=== PATIENT | male | born 1965 | race Caucasian/White ===

== ENCOUNTER 2017-06-14 08:02 | Emergency (ER) | payer MEDICAID ==
[~2017-06-14] VITALS: Ht 177.8 cm; Wt 108.9 kg
[2017-06-14 08:02] VITALS: BP_SYST 157
[2017-06-14 08:40] VITALS: BP_SYST 157
== END 2017-06-14 08:40 | disposition home or self-care (01) ==
LOC: SED 08:20
DX: L03.113 Cellulitis of right upper limb (principal)
CPT/HCPCS: 99283

== ENCOUNTER 2018-08-01 18:04 | Emergency (ER) | payer MEDICAID ==
[~2018-08-01] VITALS: Ht 177.8 cm; Wt 104.3 kg
[2018-08-01 18:10] VITALS: BP_SYST 155
[2018-08-01 19:14] VITALS: BP_SYST 148
== END 2018-08-01 19:14 | disposition home or self-care (01) ==
LOC: SED 18:04
DX: J01.90 Acute sinusitis, unspecified (principal); F17.210 Nicotine dependence, cigarettes, uncomplicated; R03.0 Elevated blood-pressure reading, without diagnosis of hypertension; Z71.6 Tobacco abuse counseling; Z90.49 Acquired absence of other specified parts of digestive tract
CPT/HCPCS: 71045; 99283

== ENCOUNTER 2020-08-20 07:58 | Emergency (ER) | payer MEDICAID, SELFPAY ==
[~2020-08-20] VITALS: Ht 177.8 cm; Wt 117.9 kg
[2020-08-20 08:07] VITALS: BP_SYST 153
[2020-08-20] MEDS ORDERED: MAG HYDROX/AL HYDROX/SIMETH 30 ML, DICYCLOMINE HCL 20 MG, LIDOCAINE VISCOUS 2% 15ML (PO... PO ONE ×3 (08:30)
[2020-08-20 08:52] LABS: BASOPHILS # (AUTO) 0.2 K/uL (0.0-0.2); BASOPHILS % (AUTO) 1.5 % (0.0-2.0); EOSINOPHILS % (AUTO) 0.3 % (0.0-4.0); HEMATOCRIT 53.2 % (36-54); HEMOGLOBIN 17.7 g/dL (14.0-18.0); LYMPHOCYTES # (AUTO) 0.9 K/uL (1.0-5.5); LYMPHOCYTES % (AUTO) 5.9 % (20.5-51.5); MEAN CORPUSCULAR HEMOGLOBIN 29 pg (27-31); MEAN CORPUSCULAR HGB CONC 33 % (32-36); MEAN CORPUSCULAR VOLUME 88 fL (79.0-98.0); MONOCYTES # (AUTO) 0.9 K/uL (0.0-1.0); MONOCYTES % (AUTO) 5.6 % (1.7-9.3); NEUTROPHILS # (AUTO) 13.8 K/uL (1.8-7.7); NEUTROPHILS % (AUTO) 86.7 % (40.0-70.0); PLATELET COUNT (AUTO) 218 K/uL (130-430); RED BLOOD CELL COUNT(AUTO) 6.07 MIL/uL (4.2-6.2); RED CELL DISTRIBUTION WIDTH 14.1 % (9.0-15.0)
[2020-08-20 09:00] LABS: CALCIUM 8.7 mg/dL (8.4-11.0); CREATININE 1.13 mg/dL (0.55-1.30)
[2020-08-20 09:02] LABS: INR 1.2 (0.80-1.20); PROTHROMBIN TIME 12.2 SECS (9.5-12.5)
[2020-08-20 09:06] LABS: ALBUMIN 3.6 g/dL (3.4-4.8); TOTAL BILIRUBIN 3.6 mg/dL (0.0-1.0)
[2020-08-20] MEDS ORDERED: AZITHROMYCIN 500 MG in NS 250 ML IV ONE (09:30)
[2020-08-20] MEDS ORDERED: AZITHROMYCIN 500 MG/VIAL (ZITHROMAX) IV ONE ×2 (09:42→10:04)
[2020-08-20] MEDS ORDERED: NACL 0.9% 1,000 ML IV ONE (09:45)
[2020-08-20 12:21] LABS: BILIRUBIN,URINE NEGATIVE (NEGATIVE); BLOOD, URINE NEGATIVE (NEGATIVE); CLARITY/URINE CLEAR (CLEAR); COLOR,URINE YELLOW (YELLOW); GLUCOSE,URINE NEGATIVE (NEGATIVE); KETONES,URINE TRACE (NEGATIVE); LEUKOCYTE ESTERASE ,URINE NEGATIVE (NEGATIVE); NITRITE, URINE NEGATIVE (NEGATIVE); PROTEIN URINE NEGATIVE (NEGATIVE)
[2020-08-20] MEDS ORDERED: cefTRIAXone 1 GM in D5W 50 ML IV ONE (12:45)
[2020-08-20] MEDS ORDERED: PRO40 PO (12:47)
[2020-08-20] MEDS ORDERED: cefTRIAXone 1 GM VIAL ONE (12:47)
[2020-08-20] MEDS ORDERED: ZIT250 PO (12:47)
[2020-08-20 13:56] VITALS: BP_SYST 126
== END 2020-08-20 13:56 | disposition home or self-care (01) ==
LOC: SED 07:58
DX: J18.9 Pneumonia, unspecified organism (principal); K29.70 Gastritis, unspecified, without bleeding; E86.0 Dehydration; F15.20 Other stimulant dependence, uncomplicated; R55 Syncope and collapse; Z79.899 Other long term (current) drug therapy; Z20.822 Contact with and (suspected) exposure to COVID-19
CPT/HCPCS: 36415; 71045; 71048; 74021; 80053; 81003; 82962; 83605; 83690; 83735; 83880; 84484; 85025; 85610; 87040; 87426; 93005; 96365; 96366; 96367; 99285; J0456; J0696; J2001

== ENCOUNTER 2021-06-25 22:04 | Emergency (ER) | payer MEDICAID, SELFPAY ==
[~2021-06-25] VITALS: Ht 177.8 cm; Wt 90.7 kg
[~2021-06-25 22:04] MED LIST: PRO40 PO; ZIT250 PO
[2021-06-25 22:28] VITALS: BP_SYST 137
[2021-06-25] MEDS ORDERED: ASPIRIN 81 MG TAB.CHEW PO ONE (23:00)
[2021-06-25 23:25] LABS: BASOPHILS # (AUTO) 0.1 K/uL (0.0-0.2); BASOPHILS % (AUTO) 1.1 % (0.0-2.0); EOSINOPHILS # (AUTO) 0.2 K/uL (0.0-0.4); EOSINOPHILS % (AUTO) 2.9 % (0.0-4.0); HEMATOCRIT 45.5 % (36-54); HEMOGLOBIN 15.1 g/dL (14.0-18.0); LYMPHOCYTES # (AUTO) 1.4 K/uL (1.0-5.5); MEAN CORPUSCULAR HEMOGLOBIN 28 pg (27-31); MEAN CORPUSCULAR HGB CONC 33 % (32-36); MEAN CORPUSCULAR VOLUME 86 fL (79.0-98.0); MONOCYTES # (AUTO) 0.6 K/uL (0.0-1.0); MONOCYTES % (AUTO) 8.6 % (1.7-9.3); NEUTROPHILS # (AUTO) 4.4 K/uL (1.8-7.7); NEUTROPHILS % (AUTO) 66.4 % (40.0-70.0); PLATELET COUNT (AUTO) 198 K/uL (130-430); RED BLOOD CELL COUNT(AUTO) 5.32 MIL/uL (4.2-6.2); WHITE BLOOD COUNT (AUTO) 6.6 K/uL (4.8-10.8)
[2021-06-25 23:40] LABS: CALCIUM 8.1 mg/dL (8.4-11.0); CREATININE 0.86 mg/dL (0.55-1.30); POTASSIUM 3.7 mmol/L (3.5-5.1)
[2021-06-25] MEDS ORDERED: FUROSEMIDE 40 MG/4 ML VIAL IVP ONE (23:45)
[2021-06-25 23:49] LABS: ALBUMIN 3.7 g/dL (3.4-4.8); TOTAL BILIRUBIN 1.2 mg/dL (0.0-1.0)
[2021-06-26] MEDS ORDERED: LOSA25TA3 PO (00:37)
[2021-06-26] MEDS ORDERED: FURO-149 PO (00:37)
[2021-06-26] MEDS ORDERED: ASPIRIN 325 MG TABLET PO ONE (03:00)
[2021-06-26 06:54] VITALS: BP_SYST 133
[2021-06-26 06:54] LABS: BILIRUBIN,URINE NEGATIVE (NEGATIVE); BLOOD, URINE NEGATIVE (NEGATIVE); CLARITY/URINE CLEAR (CLEAR); COLOR,URINE YELLOW (YELLOW); GLUCOSE,URINE NEGATIVE (NEGATIVE); KETONES,URINE NEGATIVE (NEGATIVE); LEUKOCYTE ESTERASE ,URINE NEGATIVE (NEGATIVE); NITRITE, URINE NEGATIVE (NEGATIVE); PH,URINE 6.5 (5.0-8.0); PROTEIN URINE NEGATIVE (NEGATIVE); UROBILINOGEN,URINE 0.2 (0.2-1.0)
== END 2021-06-26 06:52 | disposition short-term general hospital (02) ==
LOC: SED 22:04
DX: R06.02 Shortness of breath (principal); R60.0 Localized edema; Z79.899 Other long term (current) drug therapy; Z20.822 Contact with and (suspected) exposure to COVID-19
CPT/HCPCS: 36415; 71045; 80053; 81003; 83880; 84484; 85025; 87426; 93005; 93970; 96374; 99285; J1940

== ENCOUNTER → 2021-10-16 | Emergency (ER) | payer MEDICAID ==
[~2021-10-16] VITALS: Ht 175.3 cm; Wt 108.9 kg
[~2021-10-16] MED LIST changes: +FURO-149 PO; +LOSA25TA3 PO; +LOSA50TA3 PO; +POTA-197 PO; -PRO40 PO; -ZIT250 PO
[2021-10-16 16:08] VITALS: BP_SYST 131
== END | disposition home or self-care (01) ==
LOC: SED 15:33
DX: I11.0 Hypertensive heart disease with heart failure (principal); I50.9 Heart failure, unspecified; R06.02 Shortness of breath
CPT/HCPCS: 99283

== ENCOUNTER 2021-12-06 02:32 | Emergency (ER) | payer MEDICAID ==
[~2021-12-06] VITALS: Ht 175.3 cm; Wt 104.3 kg
[2021-12-06 02:40] VITALS: BP_SYST 122
--- NOTE | 2021-12-06 03:40 | NUR ---
Patient to ER bed 7 to gown for evaluation. Side rails up. Report given to Carla FARAH(reg).
--- NOTE | 2021-12-06 03:45 | NUR ---
ER at bedside examining patient.
[2021-12-06] MEDS ORDERED: MAGNESIUM SULFATE 50 ML IV ONE (04:30)
--- NOTE | 2021-12-06 04:30 | NUR ---
PT COMES IN WITH CC OF GENERALIZED ABODMINAL PAIN, PT DENIES ANY VOMITING BUT STATES TO HAVE BEEN HAVING DIARRHEA FOR THE PAST COUPLE OF DAYS. PT IN BED LOCKED IN LOW POSITION IN STABLE CONDITION, ON CHILD SUPPORT CASE OFFICER. VSS ,NAD. WILL CONTINUE TO MONITOR.
[2021-12-06] MEDS ORDERED: ACETAMINOPHEN 500 MG TABLET PO ONE (06:00)
[2021-12-06 07:17] LABS: BASOPHILS # (AUTO) 0.1 K/uL (0.0-0.2); BASOPHILS % (AUTO) 1.1 % (0.0-2.0); EOSINOPHILS # (AUTO) 0.1 K/uL (0.0-0.4); EOSINOPHILS % (AUTO) 0.8 % (0.0-4.0); LYMPHOCYTES # (AUTO) 1.7 K/uL (1.0-5.5); LYMPHOCYTES % (AUTO) 21.3 % (20.5-51.5); MEAN CORPUSCULAR HEMOGLOBIN 29 pg (27-31); MEAN CORPUSCULAR HGB CONC 34 % (32-36); MEAN CORPUSCULAR VOLUME 85 fL (79.0-98.0); MONOCYTES # (AUTO) 0.8 K/uL (0.0-1.0); MONOCYTES % (AUTO) 10.9 % (1.7-9.3); NEUTROPHILS # (AUTO) 5.1 K/uL (1.8-7.7); NEUTROPHILS % (AUTO) 65.9 % (40.0-70.0); PLATELET COUNT (AUTO) 189 K/uL (130-430); RED CELL DISTRIBUTION WIDTH 14.8 % (9.0-15.0); WHITE BLOOD COUNT (AUTO) 7.8 K/uL (4.8-10.8)
--- NOTE | 2021-12-06 07:20 | NUR ---
RECEIVED PT FROM SOFI MCCORMACK. ASSUMED CARE. PT IS SLEEPING PEACEFULLY. RESP E/U. ON R/A. TELE MONITOR SHOWING NSR, VS WNL. PT HAS LH [address] PT ADMITTED FOR N/V, NO EPISODES ON PRIOR SHIFT, AWAITING MORNING LABS. SEIZURE PRECAUTIONS IN PLACE. SIDE RAILS UP X2, BED IN LOW POSITION. CALL LIGHT WITHIN REACH.
[2021-12-06 07:34] LABS: ANION GAP 7 (5-15); CALCIUM 8.1 mg/dL (8.4-11.0); CHLORIDE 104 mmol/L (98-107); CREATININE 1.01 mg/dL (0.55-1.30); GLUCOSE 107 mg/dL (70-99); POTASSIUM 3.4 mmol/L (3.5-5.1); SODIUM SERUM 135 mmol/L (136-145); UREA NITROGEN, BLOOD 13 mg/dL (8-21)
[2021-12-06 07:48] LABS: ALANINE AMINOTRANSFERASE 34 U/L (12-78); ALBUMIN 2.9 g/dL (3.4-4.8); ASPARTATE AMINOTRANSFERASE 28 U/L (10-37); LIPASE 131 U/L (73-393); TOTAL BILIRUBIN 1.3 mg/dL (0.0-1.0)
[2021-12-06 07:55] LABS: ALCOHOL, BLOOD < 3 mg/dL (<10); GFR AFRICAN AMERICAN 98 mL/min (>90)
--- NOTE | 2021-12-06 08:29 | NUR ---
CT SCAN COMPLETED . PT PULLED OUT IV CATH, ATTEMPTING NEW CATH INSERTION AT THIS TIME. PT ASSISTED TO BSC AND URINE SAMPLE OBTAINED AND TAKEN TO LAB.
[2021-12-06 09:44] LABS: BILIRUBIN,URINE NEGATIVE (NEGATIVE); BLOOD, URINE NEGATIVE (NEGATIVE); GLUCOSE,URINE NEGATIVE (NEGATIVE); KETONES,URINE NEGATIVE (NEGATIVE); LEUKOCYTE ESTERASE ,URINE NEGATIVE (NEGATIVE); NITRITE, URINE NEGATIVE (NEGATIVE); PH,URINE 5.5 (5.0-8.0); PROTEIN URINE 1+ (NEGATIVE); UROBILINOGEN,URINE 0.2 (0.2-1.0)
[2021-12-06 09:45] LABS: CLARITY/URINE SLIGHTLY HAZY (CLEAR); COLOR,URINE YELLOW (YELLOW)
[2021-12-06 10:39] LABS: BARBITURATE, URINE NEGATIVE (NEG <=200); BENZODIAZEPINE, URINE NEGATIVE (NEG <=150); CANNABINOID, URINE NEGATIVE (NEG <=50); COCAINE, URINE NEGATIVE (NEG <=150); METHAMPHETAMINES SCREEN,URINE NEGATIVE (NEG <=500); OPIATE, URINE NEGATIVE (NEG <=100); PHENCYCLIDINE SCREEN,URINE NEGATIVE (NEG <=25); UR TRICYCLIC ANTIDEPRESSANTS NEGATIVE (NEG <=300); URINE AMPHETAMINE NEGATIVE (NEG <=500); URINE METHADONE NEGATIVE (NEG <=200); URINE OXYCODONE SCREEN NEGATIVE (NEG <=100); URINE PROPOXYPHENE SCREEN NEGATIVE (NEG <=300)
[2021-12-06] MEDS ORDERED: metroNIDAZOLE 500 mg/NS 100 ML IV ONE (10:45)
--- NOTE | 2021-12-06 10:46 | NUR ---
DR. PEREA AT BEDSIDE TO REVIEW POC FOR PT. PT WILL HAVE IV FLAGYL AND DISCHARGE HOME. PT AGREES WITH POC.
[2021-12-06] MEDS ORDERED: METR-154 PO (13:05)
[2021-12-06 13:21] VITALS: BP_SYST 134
--- NOTE | 2021-12-06 13:23 | NUR ---
Patient given written and verbal discharge instructions and verbalizes understanding. ER MD discussed with patient the results and treatment provided. Patient in stable condition. ID arm band removed. IV catheter removed intact and dressing applied, no active bleeding. Rx of antibiotic given. Patient educated on pain management and to follow up with PMD. Pain Scale0/10. Opportunity for questions provided and answered. Medication side effect fact sheet provided.
== END 2021-12-06 13:23 | disposition home or self-care (01) ==
LOC: SED 02:32
DX: S81.812A Laceration without foreign body, left lower leg, initial encounter (principal); R10.13 Epigastric pain; R11.2 Nausea with vomiting, unspecified; Z79.899 Other long term (current) drug therapy; W25.XXXA Contact with sharp glass, initial encounter; Y93.89 Activity, other specified; Y92.89 Other specified places as the place of occurrence of the external cause; Y99.8 Other external cause status
CPT/HCPCS: 99285; 74176; 80307; 80053; 83690; 85025; 87040; 84484; 36415; 76376; 81003; 12002; 93005; G0482; J3475; J3490

== ENCOUNTER 2022-02-19 17:09 | Inpatient (IN) | payer MEDICAID ==
[~2022-02-19] VITALS: Ht 177.8 cm; Wt 121.1 kg
[~2022-02-19 17:09] MED LIST changes: +METR-154 PO
[2022-02-19 17:24] VITALS: BP_SYST 120
[2022-02-19 17:54] LABS: BASOPHILS % (AUTO) 0.3 % (0.0-2.0); EOSINOPHILS % (AUTO) 0.1 % (0.0-4.0); HEMATOCRIT 48.8 % (36-54); HEMOGLOBIN 16.3 g/dL (14.0-18.0); LYMPHOCYTES # (AUTO) 0.4 K/uL (1.0-5.5); LYMPHOCYTES % (AUTO) 3.4 % (20.5-51.5); MEAN CORPUSCULAR HEMOGLOBIN 29 pg (27-31); MEAN CORPUSCULAR HGB CONC 33 % (32-36); MEAN CORPUSCULAR VOLUME 87 fL (79.0-98.0); MONOCYTES # (AUTO) 0.4 K/uL (0.0-1.0); MONOCYTES % (AUTO) 3.1 % (1.7-9.3); NEUTROPHILS # (AUTO) 11.3 K/uL (1.8-7.7); NEUTROPHILS % (AUTO) 93.1 % (40.0-70.0); PLATELET COUNT (AUTO) 150 K/uL (130-430); RED BLOOD CELL COUNT(AUTO) 5.62 MIL/uL (4.2-6.2); RED CELL DISTRIBUTION WIDTH 14.8 % (9.0-15.0); WHITE BLOOD COUNT (AUTO) 12.1 K/uL (4.8-10.8)
[2022-02-19 18:06] LABS: ANION GAP 10 (5-15); CALCIUM 8.4 mg/dL (8.4-11.0); CHLORIDE 93 mmol/L (98-107); CREATININE 1.22 mg/dL (0.55-1.30); GLUCOSE 104 mg/dL (70-99); POTASSIUM 3.1 mmol/L (3.5-5.1); UREA NITROGEN, BLOOD 16 mg/dL (8-21)
[2022-02-19 18:07] LABS: GFR AFRICAN AMERICAN 79 mL/min (>90)
[2022-02-19 18:11] LABS: ALANINE AMINOTRANSFERASE 24 U/L (12-78); ALBUMIN 3.1 g/dL (3.4-4.8); ASPARTATE AMINOTRANSFERASE 23 U/L (10-37)
[2022-02-19 18:12] LABS: C-REACTIVE PROTEIN QUANT < 0.2 mg/dL (0-0.5)
[2022-02-19] MEDS ORDERED: CLINDAMYCIN 600 mg/50mL D5W 50 ML IV ONE ×2 (18:45→23:46)
[2022-02-19] MEDS ORDERED: ONDANSETRON 4 MG ODT TAB PO ONE (19:15)
[2022-02-20] MEDS ORDERED: ONDANSETRON HCL 4 MG/2 ML VIAL IVP PRN
[2022-02-20] MEDS ORDERED: HYDROcodone/ACETAMIN 5-325 MG TAB (NORCO/ VICODIN) PO PRN
[2022-02-20] MEDS ORDERED: ACETAMINOPHEN 325 MG TABLET PO PRN
[2022-02-20] MEDS ORDERED: TEMAZEPAM 7.5 MG CAPSULE PO PRN
[2022-02-20] MEDS ORDERED: NALOXONE HCL 0.4 MG/ML AMP (NARCAN) IVP PRN ×2
[2022-02-20] MEDS: CLINDAMYCIN 600 MG in D5W 50 ML IV SCH ×3 (05:44→22:22)
[2022-02-20] MEDS ORDERED: CLINDAMYCIN 600 MG in D5W 50 ML IV SCH (06:00)
[2022-02-20 08:00] VITALS: BP_SYST 122
[2022-02-20] MEDS ORDERED: FUROSEMIDE 40 MG TABLET PO SCH (09:00)
[2022-02-20] MEDS ORDERED: POTASSIUM CHLORIDE 20 MEQ/PKT PACKET PO SCH (09:00)
[2022-02-20] MEDS ORDERED: LOSARTAN POTASSIUM 50 MG TABLET (COZAAR) PO SCH (09:00)
[2022-02-20 11:41] VITALS: BP_SYST 100
[2022-02-20] MEDS ORDERED: FURO-150 PO (12:02)
[2022-02-20] MEDS ORDERED: POTA-197 PO (12:05)
[2022-02-20] MEDS ORDERED: ASPI-1393 PO (12:05)
[2022-02-20] MEDS ORDERED: ASPIRIN 81 MG TABLET(ECOTRIN) PO ONE (12:15)
[2022-02-20] MEDS: HYDROcodone/ACETAMIN 10-325 MG TAB PO PRN (13:36)
[2022-02-20] MEDS: ceFAZolin SODIUM 2 GM in NS 100 ML IV SCH ×2 (15:08→22:22)
[2022-02-20 15:40] VITALS: BP_SYST 90
[2022-02-20] MEDS ORDERED: FUROSEMIDE 40 MG/4 ML VIAL IVP SCH (21:00)
[2022-02-21 00:45] VITALS: BP_SYST 94
[2022-02-21] MEDS: CLINDAMYCIN 600 MG in D5W 50 ML IV SCH ×3 (05:03→21:45)
[2022-02-21] MEDS: ceFAZolin SODIUM 2 GM in NS 100 ML IV SCH ×3 (06:04→22:01)
[2022-02-21 07:15] LABS: BILIRUBIN,URINE 3+ (NEGATIVE); BLOOD, URINE NEGATIVE (NEGATIVE); CLARITY/URINE CLEAR (CLEAR); GLUCOSE,URINE TRACE (NEGATIVE); KETONES,URINE TRACE (NEGATIVE); LEUKOCYTE ESTERASE ,URINE NEGATIVE (NEGATIVE); NITRITE, URINE POSITIVE (NEGATIVE); PH,URINE 5.5 (5.0-8.0); PROTEIN URINE TRACE (NEGATIVE)
[2022-02-21 07:32] LABS: COLOR,URINE ORANGE (YELLOW)
[2022-02-21 07:55] LABS: BASOPHILS # (AUTO) 0.1 K/uL (0.0-0.2); BASOPHILS % (AUTO) 0.5 % (0.0-2.0); EOSINOPHILS # (AUTO) 0.1 K/uL (0.0-0.4); EOSINOPHILS % (AUTO) 0.6 % (0.0-4.0); HEMATOCRIT 38.1 % (36-54); LYMPHOCYTES # (AUTO) 0.9 K/uL (1.0-5.5); LYMPHOCYTES % (AUTO) 7.2 % (20.5-51.5); MEAN CORPUSCULAR HEMOGLOBIN 29 pg (27-31); MEAN CORPUSCULAR HGB CONC 34 % (32-36); MEAN CORPUSCULAR VOLUME 86 fL (79.0-98.0); MONOCYTES # (AUTO) 1.2 K/uL (0.0-1.0); MONOCYTES % (AUTO) 9.2 % (1.7-9.3); NEUTROPHILS # (AUTO) 10.6 K/uL (1.8-7.7); NEUTROPHILS % (AUTO) 82.5 % (40.0-70.0); PLATELET COUNT (AUTO) 130 K/uL (130-430); RED BLOOD CELL COUNT(AUTO) 4.44 MIL/uL (4.2-6.2); RED CELL DISTRIBUTION WIDTH 14.5 % (9.0-15.0); WHITE BLOOD COUNT (AUTO) 12.9 K/uL (4.8-10.8)
[2022-02-21 07:57] LABS: BARBITURATE, URINE NEGATIVE (NEG <=200); BENZODIAZEPINE, URINE NEGATIVE (NEG <=150); METHAMPHETAMINES SCREEN,URINE POSITIVE (NEG <=500); URINE AMPHETAMINE POSITIVE (NEG <=500); URINE METHADONE NEGATIVE (NEG <=200)
[2022-02-21 07:58] LABS: CANNABINOID, URINE NEGATIVE (NEG <=50); COCAINE, URINE NEGATIVE (NEG <=150); OPIATE, URINE POSITIVE (NEG <=100); PHENCYCLIDINE SCREEN,URINE NEGATIVE (NEG <=25); UR TRICYCLIC ANTIDEPRESSANTS NEGATIVE (NEG <=300); URINE OXYCODONE SCREEN NEGATIVE (NEG <=100); URINE PROPOXYPHENE SCREEN NEGATIVE (NEG <=300)
[2022-02-21 08:37] LABS: ALBUMIN 1.8 g/dL (3.4-4.8); CALCIUM 8.4 mg/dL (8.4-11.0); CREATININE 1.38 mg/dL (0.55-1.30); POTASSIUM 3.1 mmol/L (3.5-5.1); TOTAL BILIRUBIN 2.9 mg/dL (0.0-1.0)
[2022-02-21] MEDS: SPIRONOLACTONE 25 MG TABLET (ALDACTONE) PO SCH ×2 (09:00→20:42)
[2022-02-21] MEDS ORDERED: metOLazone 5 MG TABLET PO SCH (09:00)
[2022-02-21] MEDS: ASPIRIN 81 MG TABLET(ECOTRIN) PO SCH (09:00)
[2022-02-21] MEDS: FUROSEMIDE 40 MG/4 ML VIAL IVP SCH (09:00)
[2022-02-21 09:02] LABS: BACTERIA,URINE FEW /HPF (None Seen); MUCUS,URINE 1+ /LPF (None Seen); RBC,URINE 0-3 /HPF (0-3)
[2022-02-21] MEDS: POTASSIUM CHLORIDE 10 MEQ TAB.PRT.SR PO SCH (10:40)
[2022-02-21] MEDS ORDERED: NS 250 ML IV ONE (11:00)
[2022-02-21 11:26] VITALS: BP_SYST 95
[2022-02-21 15:25] VITALS: BP_SYST 114
[2022-02-21] MEDS ORDERED: ALBUMIN HUMAN 25% 50 ML IV ONE (17:15)
[2022-02-21 19:20] VITALS: BP_SYST 123
[2022-02-21 20:26] LABS: URINE SODIUM, RANDOM 4 mmol/L (40-220)
[2022-02-21] MEDS: HYDROcodone/ACETAMIN 10-325 MG TAB PO PRN (20:42)
[2022-02-22] MEDS: HYDROcodone/ACETAMIN 10-325 MG TAB PO PRN ×2 (03:11→22:20)
[2022-02-22 04:20] VITALS: BP_SYST 83
[2022-02-22] MEDS: CLINDAMYCIN 600 MG in D5W 50 ML IV SCH ×3 (05:55→22:21)
[2022-02-22] MEDS: ceFAZolin SODIUM 2 GM in NS 100 ML IV SCH ×3 (06:03→22:21)
[2022-02-22 06:44] LABS: BASOPHILS # (AUTO) 0.1 K/uL (0.0-0.2); BASOPHILS % (AUTO) 0.7 % (0.0-2.0); EOSINOPHILS # (AUTO) 0.1 K/uL (0.0-0.4); EOSINOPHILS % (AUTO) 0.8 % (0.0-4.0); HEMATOCRIT 38.2 % (36-54); HEMOGLOBIN 13.3 g/dL (14.0-18.0); LYMPHOCYTES # (AUTO) 0.8 K/uL (1.0-5.5); LYMPHOCYTES % (AUTO) 7.5 % (20.5-51.5); MEAN CORPUSCULAR HEMOGLOBIN 30 pg (27-31); MEAN CORPUSCULAR HGB CONC 35 % (32-36); MEAN CORPUSCULAR VOLUME 85 fL (79.0-98.0); MONOCYTES % (AUTO) 8.8 % (1.7-9.3); NEUTROPHILS # (AUTO) 9.3 K/uL (1.8-7.7); NEUTROPHILS % (AUTO) 82.2 % (40.0-70.0); PLATELET COUNT (AUTO) 164 K/uL (130-430); RED BLOOD CELL COUNT(AUTO) 4.48 MIL/uL (4.2-6.2); RED CELL DISTRIBUTION WIDTH 14.9 % (9.0-15.0); WHITE BLOOD COUNT (AUTO) 11.3 K/uL (4.8-10.8)
[2022-02-22 07:44] LABS: CALCIUM 7.7 mg/dL (8.4-11.0); CREATININE 1.15 mg/dL (0.55-1.30); POTASSIUM 3.1 mmol/L (3.5-5.1)
[2022-02-22] MEDS: ASPIRIN 81 MG TABLET(ECOTRIN) PO SCH (08:58)
[2022-02-22] MEDS: SPIRONOLACTONE 25 MG TABLET (ALDACTONE) PO SCH ×2 (08:58→22:21)
[2022-02-22] MEDS: FUROSEMIDE 40 MG/4 ML VIAL IVP SCH (08:58)
[2022-02-22] MEDS: POTASSIUM CHLORIDE 10 MEQ TAB.PRT.SR PO SCH (09:00)
[2022-02-22] MEDS ORDERED: POTASSIUM CHLORIDE 20 MEQ TAB.PRT.SR PO ONE (10:30)
[2022-02-22 11:22] VITALS: BP_SYST 115
[2022-02-22 15:25] VITALS: BP_SYST 110
[2022-02-22 19:15] VITALS: BP_SYST 121
[2022-02-22] MEDS: CALCIUM 500 MG/TAB PO SCH (22:21)
[2022-02-23] VITALS: BP_SYST 109
[2022-02-23] MEDS: ceFAZolin SODIUM 2 GM in NS 100 ML IV SCH ×3 (06:23→22:43)
[2022-02-23] MEDS: CLINDAMYCIN 600 MG in D5W 50 ML IV SCH ×3 (06:23→22:39)
[2022-02-23 07:05] LABS: BASOPHILS % (AUTO) 0.4 % (0.0-2.0); EOSINOPHILS # (AUTO) 0.1 K/uL (0.0-0.4); EOSINOPHILS % (AUTO) 0.9 % (0.0-4.0); HEMATOCRIT 37.5 % (36-54); LYMPHOCYTES # (AUTO) 1.2 K/uL (1.0-5.5); LYMPHOCYTES % (AUTO) 11.5 % (20.5-51.5); MEAN CORPUSCULAR HEMOGLOBIN 30 pg (27-31); MEAN CORPUSCULAR HGB CONC 35 % (32-36); MEAN CORPUSCULAR VOLUME 85 fL (79.0-98.0); MONOCYTES # (AUTO) 0.8 K/uL (0.0-1.0); MONOCYTES % (AUTO) 7.3 % (1.7-9.3); NEUTROPHILS # (AUTO) 8.7 K/uL (1.8-7.7); NEUTROPHILS % (AUTO) 79.9 % (40.0-70.0); PLATELET COUNT (AUTO) 222 K/uL (130-430); RED BLOOD CELL COUNT(AUTO) 4.39 MIL/uL (4.2-6.2); RED CELL DISTRIBUTION WIDTH 14.8 % (9.0-15.0); WHITE BLOOD COUNT (AUTO) 10.8 K/uL (4.8-10.8)
[2022-02-23 07:17] LABS: C-REACTIVE PROTEIN QUANT 11.6 mg/dL (0-0.5); CALCIUM 7.9 mg/dL (8.4-11.0); POTASSIUM 3.2 mmol/L (3.5-5.1)
[2022-02-23 08:00] VITALS: BP_SYST 128
[2022-02-23 08:23] LABS: ERYTHROCYTE SEDIMENTATION RATE 50 MM/HR (0-15)
[2022-02-23] MEDS: FUROSEMIDE 40 MG/4 ML VIAL IVP SCH (09:27)
[2022-02-23] MEDS: POTASSIUM CHLORIDE 10 MEQ TAB.PRT.SR PO SCH (09:29)
[2022-02-23] MEDS: ASPIRIN 81 MG TABLET(ECOTRIN) PO SCH (09:29)
[2022-02-23] MEDS: SPIRONOLACTONE 25 MG TABLET (ALDACTONE) PO SCH ×2 (09:30→22:51)
[2022-02-23] MEDS: CALCIUM 500 MG/TAB PO SCH ×2 (09:30→22:51)
[2022-02-23 11:23] VITALS: BP_SYST 109
[2022-02-23 15:45] VITALS: BP_SYST 130
[2022-02-23] MEDS: HYDROcodone/ACETAMIN 10-325 MG TAB PO PRN (18:17)
[2022-02-23 20:00] VITALS: BP_SYST 118
[2022-02-24 00:35] VITALS: BP_SYST 118
[2022-02-24] MEDS: CLINDAMYCIN 600 MG in D5W 50 ML IV SCH ×3 (06:40→21:30)
[2022-02-24 06:58] LABS: BASOPHILS # (AUTO) 0.1 K/uL (0.0-0.2); BASOPHILS % (AUTO) 0.7 % (0.0-2.0); EOSINOPHILS # (AUTO) 0.1 K/uL (0.0-0.4); EOSINOPHILS % (AUTO) 0.8 % (0.0-4.0); HEMATOCRIT 38.5 % (36-54); HEMOGLOBIN 13.2 g/dL (14.0-18.0); LYMPHOCYTES # (AUTO) 1.5 K/uL (1.0-5.5); LYMPHOCYTES % (AUTO) 13.1 % (20.5-51.5); MEAN CORPUSCULAR HEMOGLOBIN 29 pg (27-31); MEAN CORPUSCULAR HGB CONC 34 % (32-36); MEAN CORPUSCULAR VOLUME 86 fL (79.0-98.0); MONOCYTES # (AUTO) 0.9 K/uL (0.0-1.0); MONOCYTES % (AUTO) 7.9 % (1.7-9.3); NEUTROPHILS # (AUTO) 8.9 K/uL (1.8-7.7); NEUTROPHILS % (AUTO) 77.5 % (40.0-70.0); PLATELET COUNT (AUTO) 268 K/uL (130-430); RED BLOOD CELL COUNT(AUTO) 4.48 MIL/uL (4.2-6.2); RED CELL DISTRIBUTION WIDTH 15.3 % (9.0-15.0); WHITE BLOOD COUNT (AUTO) 11.5 K/uL (4.8-10.8)
[2022-02-24 07:04] LABS: ALBUMIN 1.9 g/dL (3.4-4.8); C-REACTIVE PROTEIN QUANT 9.9 mg/dL (0-0.5); CREATININE 1.17 mg/dL (0.55-1.30); POTASSIUM 3.3 mmol/L (3.5-5.1); TOTAL BILIRUBIN 1.9 mg/dL (0.0-1.0)
[2022-02-24 08:00] VITALS: BP_SYST 138
[2022-02-24] MEDS: CALCIUM 500 MG/TAB PO SCH ×2 (08:52→21:29)
[2022-02-24] MEDS: HYDROcodone/ACETAMIN 10-325 MG TAB PO PRN ×2 (08:52→21:29)
[2022-02-24] MEDS: SPIRONOLACTONE 25 MG TABLET (ALDACTONE) PO SCH ×2 (08:53→21:29)
[2022-02-24] MEDS: ASPIRIN 81 MG TABLET(ECOTRIN) PO SCH (08:53)
[2022-02-24] MEDS: POTASSIUM CHLORIDE 10 MEQ TAB.PRT.SR PO SCH (09:29)
[2022-02-24] MEDS: FUROSEMIDE 40 MG/4 ML VIAL IVP SCH (09:29)
[2022-02-24] MEDS: ceFAZolin SODIUM 2 GM in NS 100 ML IV SCH ×2 (09:30→17:21)
[2022-02-24 11:43] VITALS: BP_SYST 112
[2022-02-24 12:09] LABS: ERYTHROCYTE SEDIMENTATION RATE 38 MM/HR (0-15)
[2022-02-24 16:19] VITALS: BP_SYST 139
[2022-02-24 20:00] VITALS: BP_SYST 133
[2022-02-25] VITALS: BP_SYST 119
[2022-02-25] MEDS: CLINDAMYCIN 600 MG in D5W 50 ML IV SCH (05:25)
[2022-02-25] MEDS: HYDROcodone/ACETAMIN 10-325 MG TAB PO PRN ×2 (05:31→23:33)
[2022-02-25] MEDS: ceFAZolin SODIUM 2 GM in NS 100 ML IV SCH ×3 (06:08)
[2022-02-25 08:00] VITALS: BP_SYST 115
[2022-02-25] MEDS: POTASSIUM CHLORIDE 10 MEQ TAB.PRT.SR PO SCH (09:24)
[2022-02-25] MEDS: ASPIRIN 81 MG TABLET(ECOTRIN) PO SCH (09:25)
[2022-02-25] MEDS: CALCIUM 500 MG/TAB PO SCH ×2 (09:25→21:03)
[2022-02-25] MEDS: SPIRONOLACTONE 25 MG TABLET (ALDACTONE) PO SCH ×2 (09:25→21:00)
[2022-02-25] MEDS: FUROSEMIDE 40 MG/4 ML VIAL IVP SCH (09:26)
[2022-02-25 11:25] VITALS: BP_SYST 126
[2022-02-25 12:00] VITALS: BP_SYST 128
[2022-02-25 16:55] VITALS: BP_SYST 128
[2022-02-25 17:13] LABS: CALCIUM 8.8 mg/dL (8.4-11.0); CREATININE 1.15 mg/dL (0.55-1.30); POTASSIUM 4.2 mmol/L (3.5-5.1)
[2022-02-25 17:19] LABS: ALBUMIN 2.2 g/dL (3.4-4.8); TOTAL BILIRUBIN 2.5 mg/dL (0.0-1.0)
[2022-02-25 17:20] LABS: WHITE BLOOD COUNT (AUTO) 13.3 K/uL (4.8-10.8)
[2022-02-25 17:26] LABS: HEMATOCRIT 44.5 % (36-54); HEMOGLOBIN 15.2 g/dL (14.0-18.0); MEAN CORPUSCULAR HEMOGLOBIN 29 pg (27-31); MEAN CORPUSCULAR HGB CONC 34 % (32-36); MEAN CORPUSCULAR VOLUME 86 fL (79.0-98.0); PLATELET COUNT (AUTO) 312 K/uL (130-430); RED BLOOD CELL COUNT(AUTO) 5.16 MIL/uL (4.2-6.2); RED CELL DISTRIBUTION WIDTH 15.6 % (9.0-15.0)
[2022-02-25 17:43] LABS: INR 1.1 (0.80-1.20); PROTHROMBIN TIME 11.6 SECS (9.5-12.5)
[2022-02-25 18:48] LABS: ATYPICAL LYMPHOCYTES % 5 % (0-0); BAND % (MANUAL) 5 % (0-6); BASOPHILS % (MANUAL) 0 % (0-2); EOSINOPHILS % (MANUAL) 2 % (0-7); LYMPHOCYTES % (MANUAL) 18 % (20-46); METAMYELOCYTES % 3 % (0-0); MONOCYTES % (MANUAL) 5 % (0-11); MYELOCYTES % 2 % (0-0)
[2022-02-25] MEDS ORDERED: fentaNYL CITRATE/PF 100 MCG/2 ML AMP IVP PRN ×2 (19:00)
[2022-02-25] MEDS ORDERED: METOCLOPRAMIDE HCL 10 MG/2 ML VIAL IVP PRN (19:00)
[2022-02-25 20:30] VITALS: BP_SYST 101
[2022-02-25] MEDS ORDERED: FUROSEMIDE 20 MG TABLET PO SCH (21:00)
[2022-02-25] MEDS: CEFTAROLINE FOSAMIL ACETATE 600 MG in NS 250 ML IV SCH (21:04)
[2022-02-26 00:54] VITALS: BP_SYST 101
[2022-02-26 08:44] LABS: CALCIUM 8.3 mg/dL (8.4-11.0); CREATININE 1.03 mg/dL (0.55-1.30); POTASSIUM 3.7 mmol/L (3.5-5.1)
[2022-02-26] MEDS ORDERED: ASPIRIN 81 MG TABLET(ECOTRIN) PO SCH (09:00)
[2022-02-26] MEDS ORDERED: POTASSIUM CHLORIDE 20 MEQ TAB.PRT.SR PO SCH (09:00)
[2022-02-26] MEDS: POTASSIUM CHLORIDE 10 MEQ TAB.PRT.SR PO SCH (09:38)
[2022-02-26] MEDS: SPIRONOLACTONE 25 MG TABLET (ALDACTONE) PO SCH ×2 (09:38→20:19)
[2022-02-26] MEDS: CALCIUM 500 MG/TAB PO SCH ×2 (09:39→20:18)
[2022-02-26] MEDS: ASPIRIN 81 MG TABLET(ECOTRIN) PO SCH (09:39)
[2022-02-26] MEDS: FUROSEMIDE 40 MG/4 ML VIAL IVP SCH (09:39)
[2022-02-26] MEDS: CEFTAROLINE FOSAMIL ACETATE 600 MG in NS 250 ML IV SCH ×2 (09:40→20:22)
[2022-02-26] MEDS: HYDROcodone/ACETAMIN 10-325 MG TAB PO PRN ×2 (09:40→20:19)
[2022-02-26 11:31] VITALS: BP_SYST 145
[2022-02-26] MEDS ORDERED: FUROSEMIDE 20 MG/2 ML VIAL IVP ONE (12:00)
[2022-02-26] MEDS ORDERED: NS IRRIG SOLN 1000 ML IR ONE (14:50)
[2022-02-26] MEDS ORDERED: PROPOFOL 200MG/ 20ML VIAL (DIPRIVAN) IV ONE (14:50)
[2022-02-26] MEDS ORDERED: BUPIVACAINE /DEX PF 0.75% SPINAL 2 ML AMP INJ ONE (14:50)
[2022-02-26] MEDS ORDERED: NS 100 ML BAG IV ONE (14:50)
[2022-02-26] MEDS ORDERED: MORPHINE SULFATE 10MG/10ML PF AMP EP ONE (14:50)
[2022-02-26 15:29] VITALS: BP_SYST 103
[2022-02-26 20:00] VITALS: BP_SYST 149
[2022-02-27] VITALS: BP_SYST 108
[2022-02-27] MEDS: HYDROcodone/ACETAMIN 10-325 MG TAB PO PRN ×4 (03:48→21:03)
[2022-02-27 07:22] LABS: BASOPHILS % (AUTO) 0.4 % (0.0-2.0); EOSINOPHILS # (AUTO) 0.1 K/uL (0.0-0.4); EOSINOPHILS % (AUTO) 0.5 % (0.0-4.0); HEMATOCRIT 39.6 % (36-54); HEMOGLOBIN 13.4 g/dL (14.0-18.0); LYMPHOCYTES # (AUTO) 1.2 K/uL (1.0-5.5); LYMPHOCYTES % (AUTO) 11.7 % (20.5-51.5); MEAN CORPUSCULAR HEMOGLOBIN 29 pg (27-31); MEAN CORPUSCULAR HGB CONC 34 % (32-36); MEAN CORPUSCULAR VOLUME 86 fL (79.0-98.0); MONOCYTES # (AUTO) 0.6 K/uL (0.0-1.0); MONOCYTES % (AUTO) 5.7 % (1.7-9.3); NEUTROPHILS # (AUTO) 8.6 K/uL (1.8-7.7); PLATELET COUNT (AUTO) 320 K/uL (130-430); RED BLOOD CELL COUNT(AUTO) 4.59 MIL/uL (4.2-6.2); RED CELL DISTRIBUTION WIDTH 15.4 % (9.0-15.0); WHITE BLOOD COUNT (AUTO) 10.6 K/uL (4.8-10.8)
[2022-02-27 07:45] VITALS: BP_SYST 122
[2022-02-27 08:12] LABS: CALCIUM 8.5 mg/dL (8.4-11.0); CREATININE 1.03 mg/dL (0.55-1.30); POTASSIUM 4.4 mmol/L (3.5-5.1)
[2022-02-27 08:35] LABS: NEUTROPHILS % (AUTO) 81.7 % (40.0-70.0)
[2022-02-27] MEDS: CEFTAROLINE FOSAMIL ACETATE 600 MG in NS 250 ML IV SCH ×2 (09:23→21:03)
[2022-02-27] MEDS: SPIRONOLACTONE 25 MG TABLET (ALDACTONE) PO SCH ×2 (09:24→21:02)
[2022-02-27] MEDS: CALCIUM 500 MG/TAB PO SCH ×2 (09:24→21:03)
[2022-02-27] MEDS: ASPIRIN 81 MG TABLET(ECOTRIN) PO SCH (09:24)
[2022-02-27] MEDS: FUROSEMIDE 40 MG/4 ML VIAL IVP SCH (09:25)
[2022-02-27] MEDS: POTASSIUM CHLORIDE 10 MEQ TAB.PRT.SR PO SCH (09:25)
[2022-02-27 11:25] VITALS: BP_SYST 113
[2022-02-27 12:12] LABS: INR 1.2 (0.80-1.20)
[2022-02-27 15:00] VITALS: BP_SYST 136
[2022-02-27 16:00] VITALS: BP_SYST 132
[2022-02-27] MEDS ORDERED: TEMA7.5C2 PO (16:16)
[2022-02-27 20:00] VITALS: BP_SYST 118
[2022-02-28 08:00] VITALS: BP_SYST 107
[2022-02-28] MEDS: ASPIRIN 81 MG TABLET(ECOTRIN) PO SCH (10:36)
[2022-02-28] MEDS: SPIRONOLACTONE 25 MG TABLET (ALDACTONE) PO SCH (10:36)
[2022-02-28] MEDS: CEFTAROLINE FOSAMIL ACETATE 600 MG in NS 250 ML IV SCH (10:36)
[2022-02-28] MEDS: FUROSEMIDE 40 MG/4 ML VIAL IVP SCH (10:37)
[2022-02-28] MEDS: POTASSIUM CHLORIDE 10 MEQ TAB.PRT.SR PO SCH (10:37)
[2022-02-28] MEDS: CALCIUM 500 MG/TAB PO SCH (10:37)
[2022-02-28 11:29] VITALS: BP_SYST 111
[2022-02-28 13:29] VITALS: BP_SYST 136
[2022-02-28] MEDS ORDERED: CEFA1FRO IV (13:37)
[2022-02-28] MEDS ORDERED: ceFAZolin SODIUM 2 GM in D5W 100 ML IV SCH ×2 (14:00→14:15)
[2022-02-28 15:00] VITALS: BP_SYST 130
[2022-02-28] MEDS: HYDROcodone/ACETAMIN 10-325 MG TAB PO PRN (16:25)
[2022-02-28 20:00] VITALS: BP_SYST 108
== END 2022-02-28 21:32 | DRG 720 ==
LOC: SED 17:09 → SMU 19:22
PROVIDERS: ADMIT Specialist; ATTEND Specialist
PROC: 0JBP0ZZ Excision of Left Lower Leg Subcutaneous Tissue and Fascia, Open Approach (ICD-10-PCS; principal; 2022-02-25 18:00)
DX: A41.9 Sepsis, unspecified organism (principal); I27.29 Other secondary pulmonary hypertension; N17.9 Acute kidney failure, unspecified; E44.0 Moderate protein-calorie malnutrition; E83.51 Hypocalcemia; E87.1 Hypo-osmolality and hyponatremia; I42.7 Cardiomyopathy due to drug and external agent; I50.9 Heart failure, unspecified; I13.0 Hypertensive heart and chronic kidney disease with heart failure and stage 1 through stage 4 chronic kidney disease, or unspecified chronic kidney disease; I27.81 Cor pulmonale (chronic); T43.621A Poisoning by amphetamines, accidental (unintentional), initial encounter; E87.8 Other disorders of electrolyte and fluid balance, not elsewhere classified; L03.116 Cellulitis of left lower limb; Z20.822 Contact with and (suspected) exposure to COVID-19; I89.0 Lymphedema, not elsewhere classified; F15.10 Other stimulant abuse, uncomplicated; E87.6 Hypokalemia; I87.2 Venous insufficiency (chronic) (peripheral); E66.01 Morbid (severe) obesity due to excess calories; I36.1 Nonrheumatic tricuspid (valve) insufficiency; N18.31 Chronic kidney disease, stage 3a; J44.9 Chronic obstructive pulmonary disease, unspecified; Z87.891 Personal history of nicotine dependence; Z79.899 Other long term (current) drug therapy; Z79.84 Long term (current) use of oral hypoglycemic drugs; Z79.82 Long term (current) use of aspirin; Z90.49 Acquired absence of other specified parts of digestive tract; Z68.38 Body mass index [BMI] 38.0-38.9, adult; Y92.89 Other specified places as the place of occurrence of the external cause
CPT/HCPCS: 36415; 71045; 80048; 80053; 80307; 81000; 82570; 83605; 83880; 83935; 84302; 85007; 85025; 85027; 85610-TC; 85651-TC; 85730-TC; 86140; 86886; 86900; 86901; 87040; 87070-TC; 87075-TC; 87081; 88304; 93005; 93306; 93971; 96365; 99291; J0712; J1940; J2274; J2704; J3490; J7050; J7060; P9046; Q0162

== ENCOUNTER 2022-04-08 00:29 | Emergency (ER) | payer MEDICAID ==
[~2022-04-08] VITALS: Ht 177.8 cm; Wt 108.9 kg
[~2022-04-08 00:29] MED LIST changes: +ASPI-1393 PO; +CEFA1FRO IV; -FURO-149 PO; +FURO-150 PO; -LOSA25TA3 PO; -LOSA50TA3 PO; -METR-154 PO
[2022-04-08 01:16] VITALS: BP_SYST 129
--- NOTE | 2022-04-08 01:35 | NUR ---
PT WALKED INTO THE ER C/O OF INFECTED AND DRAINING LEFT LOWER LEG WOUND. HX OF S/P DEBRIDEMENT ON THE LL LEG WOUND. PER PT, HE WAS ADMITTED AT [facility] DUE TO OBSTETRICIAN/GYNECOLOGIST IVABX FOR THE WOUND. PICC LINE WAS INSERTED. HE WAS THEN D/C 2-3 WKS AGO AND RECEIVING WHERE HE HAD WOUND VAC ON HIS LEFT LOWER LEG. IT WAS REMOVED ON THURSDAY THEN HE NOTICED YESTERDAY THE PURULENT DRAINAGE AND INCREASED SWELLING ON HIS LEFT LOWER LEG. HE SAID HE'S TAKING LASIX 20MG & KCL PO FOR THE SWELLING. PT STATED HE DOESN'T WANT TO BE ADMITTED. REPROT GIVEN TO SOFI STEVENS.
--- NOTE | 2022-04-08 01:39 | NUR ---
PLACED IN H1 BED, GOWN PROVIDED.
--- NOTE | 2022-04-08 01:45 | NUR ---
MD James at bedside examining pt.
[2022-04-08] MEDS ORDERED: CEPH-548 PO (01:47)
--- NOTE | 2022-04-08 02:09 | NUR ---
Site to LLE cleansed with NS. Wet-dry dressing applied and bandaged. Pt educated on wound care and verbalized understanding; pt also has a home wound nurse that provides tx.
--- NOTE | 2022-04-08 02:10 | NUR ---
Patient given written and verbal discharge instructions and verbalizes understanding. ER MD James discussed with patient the results and treatment provided. Patient in stable condition. ID arm band removed. Rx of CephALEXin sent to preferred pharmacy. Patient educated on pain management and to follow up with PMD. Opportunity for questions provided and answered. Medication side effect fact sheet provided.
[2022-04-08 02:13] VITALS: BP_SYST 134
== END 2022-04-08 02:13 | disposition home or self-care (01) ==
LOC: SED 00:29
DX: L03.116 Cellulitis of left lower limb (principal); Z79.899 Other long term (current) drug therapy
CPT/HCPCS: 99283

== ENCOUNTER 2022-06-05 07:37 | Inpatient (IN) | payer MEDICAID ==
[~2022-06-05] VITALS: Ht 175.3 cm; Wt 101.2 kg
[~2022-06-05 07:37] MED LIST changes: +CEPH-548 PO
[2022-06-05 07:40] VITALS: BP_SYST 168
[2022-06-05] MEDS ORDERED: FUROSEMIDE 40 MG/4 ML VIAL IVP ONE (08:00)
[2022-06-05] MEDS ORDERED: NITROGLYCERIN 1 INCH (GM) OINT. TD ONE (08:00)
[2022-06-05 08:30] LABS: BASOPHILS # (AUTO) 0.1 K/uL (0.0-0.2); BASOPHILS % (AUTO) 1.1 % (0.0-2.0); EOSINOPHILS # (AUTO) 0.1 K/uL (0.0-0.4); EOSINOPHILS % (AUTO) 1.4 % (0.0-4.0); HEMATOCRIT 43.7 % (36-54); HEMOGLOBIN 14.6 g/dL (14.0-18.0); LYMPHOCYTES % (AUTO) 31.7 % (20.5-51.5); MEAN CORPUSCULAR HEMOGLOBIN 29 pg (27-31); MEAN CORPUSCULAR HGB CONC 33 % (32-36); MEAN CORPUSCULAR VOLUME 86 fL (79.0-98.0); MONOCYTES # (AUTO) 0.7 K/uL (0.0-1.0); MONOCYTES % (AUTO) 10.8 % (1.7-9.3); NEUTROPHILS # (AUTO) 3.5 K/uL (1.8-7.7); PLATELET COUNT (AUTO) 225 K/uL (130-430); RED BLOOD CELL COUNT(AUTO) 5.09 MIL/uL (4.2-6.2); RED CELL DISTRIBUTION WIDTH 14.4 % (9.0-15.0); WHITE BLOOD COUNT (AUTO) 6.4 K/uL (4.8-10.8)
[2022-06-05 08:33] LABS: ANION GAP 8 (5-15); CALCIUM 8.7 mg/dL (8.4-11.0); CHLORIDE 104 mmol/L (98-107); CREATININE 1.12 mg/dL (0.55-1.30); GLUCOSE 104 mg/dL (70-99); UREA NITROGEN, BLOOD 26 mg/dL (8-21)
[2022-06-05 08:40] LABS: GFR AFRICAN AMERICAN 87 mL/min (>90)
[2022-06-05 08:42] LABS: ALANINE AMINOTRANSFERASE 37 U/L (12-78); ALBUMIN 3.6 g/dL (3.4-4.8); ASPARTATE AMINOTRANSFERASE 32 U/L (10-37); TOTAL BILIRUBIN 0.8 mg/dL (0.0-1.0)
[2022-06-05 15:53] VITALS: BP_SYST 141
[2022-06-05] MEDS ORDERED: METOPROLOL SUCCINATE 25 MG TAB.SR.24H (TOPROL XL) PO ONE (17:45)
[2022-06-05] MEDS ORDERED: ACETAMINOPHEN 325 MG TABLET PO PRN (17:45)
[2022-06-05 20:24] VITALS: BP_SYST 130
[2022-06-05] MEDS ORDERED: FUROSEMIDE 40 MG/4 ML VIAL IVP SCH (21:00)
[2022-06-06 01:00] VITALS: BP_SYST 121
[2022-06-06 07:05] LABS: BASOPHILS % (AUTO) 0.7 % (0.0-2.0); EOSINOPHILS # (AUTO) 0.1 K/uL (0.0-0.4); EOSINOPHILS % (AUTO) 0.9 % (0.0-4.0); HEMATOCRIT 45.3 % (36-54); HEMOGLOBIN 15.1 g/dL (14.0-18.0); LYMPHOCYTES # (AUTO) 1.8 K/uL (1.0-5.5); LYMPHOCYTES % (AUTO) 31.9 % (20.5-51.5); MEAN CORPUSCULAR HEMOGLOBIN 28 pg (27-31); MEAN CORPUSCULAR HGB CONC 33 % (32-36); MEAN CORPUSCULAR VOLUME 85 fL (79.0-98.0); MONOCYTES # (AUTO) 0.6 K/uL (0.0-1.0); MONOCYTES % (AUTO) 9.8 % (1.7-9.3); NEUTROPHILS # (AUTO) 3.3 K/uL (1.8-7.7); NEUTROPHILS % (AUTO) 56.7 % (40.0-70.0); PLATELET COUNT (AUTO) 236 K/uL (130-430); RED BLOOD CELL COUNT(AUTO) 5.31 MIL/uL (4.2-6.2); RED CELL DISTRIBUTION WIDTH 14.6 % (9.0-15.0); WHITE BLOOD COUNT (AUTO) 5.8 K/uL (4.8-10.8)
[2022-06-06 07:42] LABS: ALBUMIN 3.4 g/dL (3.4-4.8); CALCIUM 9.2 mg/dL (8.4-11.0); CREATININE 1.18 mg/dL (0.55-1.30)
[2022-06-06 08:03] VITALS: BP_SYST 112
[2022-06-06] MEDS: ASPIRIN 81 MG TABLET(ECOTRIN) PO SCH (09:04)
[2022-06-06] MEDS: FUROSEMIDE 40 MG/4 ML VIAL IVP SCH ×2 (09:04→21:08)
[2022-06-06] MEDS: LISINOPRIL 10 MG TABLET (PRINIVIL) PO SCH (09:05)
[2022-06-06] MEDS: METOPROLOL SUCCINATE 25 MG TAB.SR.24H (TOPROL XL) PO SCH (09:05)
[2022-06-06] MEDS: SILDENAFIL CITRATE 20 MG TABLET PO SCH ×3 (09:05→21:07)
[2022-06-06 09:34] LABS: TOTAL BILIRUBIN 1.3 mg/dL (0.0-1.0)
[2022-06-06 11:25] VITALS: BP_SYST 103
[2022-06-06 15:25] VITALS: BP_SYST 113
[2022-06-06 20:00] VITALS: BP_SYST 119
[2022-06-07] VITALS: BP_SYST 121
[2022-06-07 08:23] VITALS: BP_SYST 135
[2022-06-07] MEDS: FUROSEMIDE 40 MG/4 ML VIAL IVP SCH (08:37)
[2022-06-07] MEDS: METOPROLOL SUCCINATE 25 MG TAB.SR.24H (TOPROL XL) PO SCH (08:38)
[2022-06-07] MEDS: ASPIRIN 81 MG TABLET(ECOTRIN) PO SCH (08:38)
[2022-06-07] MEDS: LISINOPRIL 10 MG TABLET (PRINIVIL) PO SCH (08:39)
[2022-06-07] MEDS ORDERED: BALSAM PERU/CASTOR OIL 56.7 GM OINT...G. TP SCH (09:00)
[2022-06-07] MEDS: SILDENAFIL CITRATE 20 MG TABLET PO SCH (09:03)
[2022-06-07 09:16] LABS: ALBUMIN 3.7 g/dL (3.4-4.8); CALCIUM 9.8 mg/dL (8.4-11.0); CREATININE 1.3 mg/dL (0.55-1.30); TOTAL BILIRUBIN 1.5 mg/dL (0.0-1.0)
[2022-06-07] MEDS ORDERED: LISI10TA29 PO (11:56)
[2022-06-07] MEDS ORDERED: FURO-149 PO (11:56)
[2022-06-07] MEDS ORDERED: SILD20TA PO (11:56)
[2022-06-07] MEDS ORDERED: METO-540 PO (11:56)
[2022-06-07 12:00] VITALS: BP_SYST 102
[2022-06-07 14:24] VITALS: BP_SYST 102
== END 2022-06-07 15:55 | disposition home or self-care (01) | DRG 194 ==
LOC: SED 07:37 → STU 09:52 → SMU 06-07 13:51
PROVIDERS: ADMIT Family Medicine; ATTEND Family Medicine
DX: I11.0 Hypertensive heart disease with heart failure (principal); R65.11 Systemic inflammatory response syndrome (SIRS) of non-infectious origin with acute organ dysfunction; I27.21 Secondary pulmonary arterial hypertension; I42.6 Alcoholic cardiomyopathy; I50.33 Acute on chronic diastolic (congestive) heart failure; I42.7 Cardiomyopathy due to drug and external agent; I34.1 Nonrheumatic mitral (valve) prolapse; E66.01 Morbid (severe) obesity due to excess calories; R74.01 Elevation of levels of liver transaminase levels; Z20.822 Contact with and (suspected) exposure to COVID-19; F15.90 Other stimulant use, unspecified, uncomplicated; Z79.899 Other long term (current) drug therapy; Z79.82 Long term (current) use of aspirin; Z68.32 Body mass index [BMI] 32.0-32.9, adult; Y92.89 Other specified places as the place of occurrence of the external cause; T43.655A Adverse effect of methamphetamines, initial encounter
CPT/HCPCS: 36415; 71045; 76700-TC; 80053; 83880; 84484; 85025; 93005; 96374; 99285; G0378; J1940

== ENCOUNTER 2022-10-27 23:33 | Emergency (ER) | payer MEDICAID ==
[~2022-10-27] VITALS: Ht 177.8 cm; Wt 110.7 kg
[~2022-10-27 23:33] MED LIST changes: +FURO-149 PO; -FURO-150 PO; +LISI10TA29 PO; +METO-540 PO; +SILD20TA PO
[2022-10-27 23:47] VITALS: BP_SYST 136
[2022-10-28] MEDS ORDERED: MORPHINE 4 MG INJ. 4 MG/ML VIAL IVP ONE (00:45)
[2022-10-28] MEDS ORDERED: ONDANSETRON HCL 4 MG/2 ML VIAL IVP ONE (00:45)
[2022-10-28 02:19] LABS: BASOPHILS # (AUTO) 0.1 K/uL (0.0-0.2); BASOPHILS % (AUTO) 0.7 % (0.0-2.0); EOSINOPHILS # (AUTO) 0.1 K/uL (0.0-0.4); EOSINOPHILS % (AUTO) 0.9 % (0.0-4.0); HEMATOCRIT 41.3 % (36-54); HEMOGLOBIN 13.9 g/dL (14.0-18.0); LYMPHOCYTES # (AUTO) 1.3 K/uL (1.0-5.5); LYMPHOCYTES % (AUTO) 15.2 % (20.5-51.5); MEAN CORPUSCULAR HEMOGLOBIN 29 pg (27-31); MEAN CORPUSCULAR HGB CONC 34 % (32-36); MEAN CORPUSCULAR VOLUME 85 fL (79.0-98.0); MONOCYTES # (AUTO) 1.1 K/uL (0.0-1.0); MONOCYTES % (AUTO) 12.3 % (1.7-9.3); NEUTROPHILS # (AUTO) 6.2 K/uL (1.8-7.7); NEUTROPHILS % (AUTO) 70.9 % (40.0-70.0); PLATELET COUNT (AUTO) 211 K/uL (130-430); RED BLOOD CELL COUNT(AUTO) 4.85 MIL/uL (4.2-6.2); RED CELL DISTRIBUTION WIDTH 15.8 % (9.0-15.0); WHITE BLOOD COUNT (AUTO) 8.7 K/uL (4.8-10.8)
[2022-10-28 02:31] LABS: ALBUMIN 3.3 g/dL (3.4-4.8); CALCIUM 8.4 mg/dL (8.4-11.0); CREATININE 1.01 mg/dL (0.55-1.30); TOTAL BILIRUBIN 1.5 mg/dL (0.0-1.0)
[2022-10-28] MEDS ORDERED: CEPH-548 PO (03:09)
[2022-10-28] MEDS ORDERED: cephALEXin 500 MG CAPSULE PO ONE (03:15)
[2022-10-28] MEDS ORDERED: IBUPROFEN 600 MG TABLET PO ONE (05:00)
[2022-10-28 05:45] VITALS: BP_SYST 130
== END 2022-10-28 04:10 | disposition home or self-care (01) ==
LOC: SED 23:33
DX: L03.116 Cellulitis of left lower limb (principal); M79.662 Pain in left lower leg; I10 Essential (primary) hypertension; Z79.899 Other long term (current) drug therapy
CPT/HCPCS: 99285; 80053; 83880; 85025; 87040; 36415; 96374; 93971; 96375; 73590; J2405; J2270